=== PATIENT | male | born 1995 | race Two or more races ===

== ENCOUNTER 2018-04-02 00:30 | Emergency (ER) | payer OTHER ==
[~2018-04-02] VITALS: Ht 188 cm; Wt 136.0 kg
--- NOTE | 2018-04-02 00:40 | NUR ---
URINE CUP GIVEN TO PT. AND PT. TO BATHROOM IN LOBBY FOR UA.
[2018-04-02 00:53] LABS: MICROSCOPIC NOT IND
[2018-04-02 00:56] LABS: CULTURE INDICATED? NO
--- NOTE | 2018-04-02 00:57 | NUR ---
PT REPORTS BACK PAIN AND LOW ABD PAIN SUDDENLY TONIGHT. DENIES HX OF, DENIES N/V.
[2018-04-02] MEDS ORDERED: HYDROcodone/APAP 5/325 TABLET PO PRN (01:00)
[2018-04-02] MEDS ORDERED: ONDANSETRON ODT 4 MG PO ONE (01:00)
[2018-04-02] MEDS ORDERED: KETOROLAC 30 MG/1 ML IM ONE (01:00)
[2018-04-02] MEDS ORDERED: KETOROLAC 30 MG/1 ML ONE (01:07)
[2018-04-02] MEDS ORDERED: ONDANSETRON ODT 4 MG ONE (01:07)
[2018-04-02] MEDS ORDERED: HYDROcodone/APAP 5/325 TABLET ONE (01:07)
--- NOTE | 2018-04-02 01:22 | NUR ---
Report recieved. Pt resting in bed, pt recieved meds per orders, see emar. will monitor.
[2018-04-02 01:49] LABS: ALANINE AMINOTRANSFERASE 69 U/L (12-78); ALBUMIN 3.7 g/dL (3.4-5.0); ANION GAP 8 mmol/L (5-15); CALCIUM 8.2 mg/dL (8.5-10.1); CHLORIDE 108 mmol/L (98-107); CREATININE 0.95 mg/dL (0.7-1.3)
[2018-04-02 01:51] LABS: ALKALINE PHOSPHATASE 114 U/L (45-117); BILIRUBIN,TOTAL 0.3 mg/dL (0.2-1.0); TOTAL PROTEIN 7.4 g/dL (6.4-8.2)
[2018-04-02 01:54] LABS: BASOPHILS # (AUTO) 0.04 x10^3/uL (0-0.1); BASOPHILS % (AUTO) 0 % (0-1); EOSINOPHILS # (AUTO) 0.12 x10^3/uL (0-0.4); EOSINOPHILS % (AUTO) 1 % (1-7); LYMPHOCYTES # (AUTO) 3.71 x10^3/uL (1-3.4); LYMPHOCYTES % (AUTO) 35 % (22-44); MD NO; MEAN CORPUSCULAR HEMOGLOBIN 27.4 pg (27.5-34.5); MEAN CORPUSCULAR HGB CONC 32.6 g/dL (33.2-36.2); MEAN PLATELET VOLUME 8.5 fL (7.4-10.4); MONOCYTES # (AUTO) 0.79 x10^3/uL (0.2-0.8); MONOCYTES % (AUTO) 8 % (2-9); NEUTROPHILS # (AUTO) 5.92 x10^3/uL (1.8-6.8); NEUTROPHILS % (AUTO) 56 % (42-75); PLATELET COUNT 271 x10^3/uL (130-400); RED BLOOD COUNT 6.14 x10^6/uL (4.38-5.82); RED CELL DISTRIBUTION WIDTH 13.7 % (9.4-14.8)
--- NOTE | 2018-04-02 01:54 | NUR ---
Pt reports no change, SO at bedside. pt appears reasonably comfortable at this time. denies needs. will continue to monitor. call light in reach.
--- NOTE | 2018-04-02 02:09 | NUR ---
Pt to US.
--- NOTE | 2018-04-02 02:33 | NUR ---
Pt return to room.
--- NOTE | 2018-04-02 02:36 | NUR ---
Pt reports pain is tolerable at this time and does not need more pain medication. Pt to let this RN know if pain worsens. pt sitting in bed on his phone, friend at bedside. no acute distress noted.
--- NOTE | 2018-04-02 02:53 | NUR ---
no change to pt, will monitor.
[2018-04-02 03:10] VITALS: BP 137/78
== END 2018-04-02 03:19 | disposition home or self-care (01) ==
LOC: ED 01:21
DX: I88.0 Nonspecific mesenteric lymphadenitis (principal); I86.1 Scrotal varices; R10.31 Right lower quadrant pain
CPT/HCPCS: 36415; 74176; 76870; 80053; 81003; 85025; 93975; 96372; 99284; J1885; Q0162